=== PATIENT | female | born 1945 | race Caucasian/White ===

== ENCOUNTER 2016-10-14 08:14 | Day surgery (SDC) | payer MEDICARE, BC ==
--- NOTE | ~2016-10-14 | EGD ---
EGD REPORT [facility] [address] [place] [id number] NAME: BLOSSOM LUNSFORD : [birth year] STATUS : REG [facility] [place] PAT#: [id number] AGE: 71 ADM/REG DATE : 10/14/16 MR#: [id number] REPORT SERV DATE: 10/14/16 DICTATED BY: DIVINA CAIN DATE: 10/14/16 REPORT STATUS : Draft TRANSCRIBED BY: [facility] DATE: 10/14/16 Endoscopy Center Patient Name: Blossom Lunsford Date of : 1945 Attending MD: DIVINA CAIN MD Procedure Date No Time: 10/14/2016 Procedure: Colonoscopy Indications: Screening in patient at increased risk: Colorectal cancer in father 60 or older, Last colonoscopy: August 2011 Referring MD: EMI SALAMANCA MD Medicines: Propofol per Anesthesia Complications: No immediate complications. Estimated blood loss: None. Procedure: Pre-Anesthesia Assessment: - After reviewing the risks and benefits, the patient was deemed in satisfactory condition to undergo the procedure. - Prior to the procedure, a History and Physical was performed, and patient medications and allergies were reviewed. The patient's tolerance of previous anesthesia was also reviewed. The risks and benefits of the procedure and the sedation options and risks were discussed with the patient. All questions were answered, and informed consent was obtained. Prior Anticoagulants: The patient has taken no previous anticoagulant or antiplatelet agents. ASA Grade Assessment: III - A patient with severe systemic disease. After reviewing the risks and benefits, the patient was deemed in satisfactory condition to undergo the procedure. After I obtained informed consent, the scope was passed under direct vision. Throughout the procedure, the patient's blood pressure, pulse, and oxygen saturations were monitored continuously. The CF [id number] was introduced through the anus and advanced to the cecum, identified by appendiceal orifice and ileocecal valve. The colonoscopy was performed with difficulty due to unsatisfactory bowel prep, significant looping, a tortuous colon and the patient's body habitus. Successful completion of the procedure was aided by straightening and shortening the scope to obtain bowel loop reduction, applying abdominal pressure and lavage. The ileocecal valve and appendiceal orifice were photographed. The patient tolerated the procedure well. The quality of the bowel preparation was adequate to EGD REPORT [address] [id number] NAME: BLOSSOM LUNSFORD : [birth year] STATUS : REG [facility] [place] PAT#: [id number] AGE: 71 ADM/REG DATE : 10/14/16 MR#: [id number] REPORT SERV DATE: 10/14/16 DICTATED BY: DIVINA CAIN DATE: 10/14/16 REPORT STATUS : Draft TRANSCRIBED BY: [facility] DATE: 10/14/16 identify polyps 6 mm and larger in size after copious lavage. The bowel preparation used was polyethylene glycol (PEG). Scope withdrawal time was nearly 10 minutes. Findings: The perianal and digital rectal examinations were normal. Pertinent negatives include normal sphincter tone. Non-bleeding internal hemorrhoids were found during retroflexion and were small and Grade I (internal hemorrhoids that do not prolapse). Multiple small and large-mouthed diverticula were found in the sigmoid colon, in the descending colon and in the transverse colon. The exam was otherwise without abnormality. Impression: - Non-bleeding internal hemorrhoids. - Severe diverticulosis in the sigmoid colon, in the descending colon and in the transverse colon. - The examination was otherwise normal. Recommendation: - Discharge patient to home (ambulatory). - High fiber diet indefinitely. - Continue present medications. - Repeat colonoscopy in 5 years for screening purposes and for surveillance. - Return to GI clinic PRN. - Patient has a contact number available for emergencies. The signs and symptoms of potential delayed complications were discussed with the patient. Return to normal activities tomorrow. Written discharge instructions were provided to the patient. Procedure Code(s): --- Professional --- G0105, Colorectal cancer screening; colonoscopy on individual at high risk Diagnosis Code(s): --- Professional --- K64.0, First degree hemorrhoids K57.30, Diverticulosis of large intestine without perforation or abscess without bleeding Z12.11, Encounter for screening for malignant neoplasm of colon Z80.0, Family history of malignant neoplasm of digestive organs CPT copyright 2013 [employer]. All rights reserved. The codes documented in this report are preliminary and upon stratigrapher review may EGD REPORT [facility] [address] [place] [id number] NAME: BLOSSOM LUNSFORD : [birth year] STATUS : REG [facility] [place] PAT#: [id number] AGE: 71 ADM/REG DATE : 10/14/16 MR#: [id number] REPORT SERV DATE: 10/14/16 DICTATED BY: DIVINA CAIN. DATE: 10/14/16 REPORT STATUS : Draft TRANSCRIBED BY: [employer] DATE: 10/14/16 be revised to meet current compliance requirements. DIVINA CAIN MD 10/14/2016 10:56 AM This report has been signed electronically. Number of Addenda: 0 Note Initiated On: 10/14/2016 10:21 AM Scope Withdrawal Time 0 hours 9 minutes 56 seconds [address] [id number]
[~2016-10-14 08:14] MED LIST: ASA5GR PO; ASAB PO; CALTRA600D PO; CRESTOR10 PO; FISH-EPA1000 MG PO; GLUCOPHAGE1000 MG PO; L20 PO; MAXIMUM D3 PO; MAXZIDE PO; MICRONASE2.5 MG PO; PRAVAC PO; PROLOP100 PO; PROZAC PO; SPIRO50 PO
== END 2016-10-14 23:59 | disposition home or self-care (01) ==
LOC: DMU 08:14
PROVIDERS: Internal Medicine Gastroenterology
PROC: 0DJD8ZZ Inspection of Lower Intestinal Tract, Via Natural or Artificial Opening Endoscopic (ICD-10-PCS; principal; 2016-10-14 09:45)
DX: Z12.11 Encounter for screening for malignant neoplasm of colon (principal); K57.30 Diverticulosis of large intestine without perforation or abscess without bleeding; E11.9 Type 2 diabetes mellitus without complications; K64.0 First degree hemorrhoids; F41.9 Anxiety disorder, unspecified; I10 Essential (primary) hypertension; E78.00 Pure hypercholesterolemia, unspecified; Z90.710 Acquired absence of both cervix and uterus; Z98.51 Tubal ligation status; Z80.0 Family history of malignant neoplasm of digestive organs; Z90.49 Acquired absence of other specified parts of digestive tract; Z90.89 Acquired absence of other organs
CPT/HCPCS: 82962